=== PATIENT | female | born 1995 | race Two or more races ===

== ENCOUNTER 2023-11-13 11:58 | Observation (INO) | payer MEDICAID ==
[~2023-11-13 11:58] MED LIST: PRENPAK46 OR
[2023-11-13 14:05] LABS: Basophils # (auto) 0 10 ^3/uL (0-0.2); Basophils % (auto) 0.1 % (0.0-2.0); Eosinophils # (auto) 0.1 10 ^3/uL (0-0.8); Eosinophils % (auto) 0.7 % (0.0-7.0); Hematocrit 36.2 % (36.0-46.0); Hemoglobin 12.1 g/dL (12.2-16.2); Lymphocytes # (auto) 2.4 10 ^3/uL (0.4-5.4); Lymphocytes % (auto) 21.1 % (10.0-50.0); Mean Corpuscular Hemoglobin 27.8 pg (28.0-32.0); Mean Corpuscular Hgb Conc. 33.3 g/dL (32.0-36.0); Mean Corpuscular Volume 83.5 fL (80.0-100.0); Monocytes # (auto) 0.6 10 ^3/uL (0-1.3); Monocytes % (auto) 5.1 % (0.0-12.0); Neutrophils # (auto) 8.3 10 ^3/uL (1.6-8.6); Red Blood Cells 4.34 10^6/uL (4.0-5.20); White Blood Cell 11.3 10^3/uL (4.4-10.8)
[2023-11-13 14:21] LABS: INR 0.97 (0.9-1.15); Partial Thromboplastin Time 28.5 SEC (24.5-34.5); Prothrombin Time 10.3 sec (9.3-11.8)
[2023-11-13 14:45] LABS: Urine Bacteria FEW /hpf (None Seen); Urine Blood Negative /uL (Negative); Urine Budding Yeast OCCASIONAL /hpf (None Seen); Urine Clarity Turbid (Clear); Urine Color Yellow (Yellow); Urine Mucus FEW (None Seen); Urine Protein, UAD TRACE (Negative); Urine Specific Gravity 1.018 (1.001-1.035); Urine Urobilinogen Normal (Negative); Urine WBC 10 /hpf (0 - 5); Urine pH 6.5 (5.0-9.0)
[2023-11-13 14:47] LABS: Protein, Urine 16.4 mg/dL (0.0-11.9)
[2023-11-13 14:48] LABS: Alanine Aminotransferase 34 U/L (7-40); Albumin 3.7 g/dL (3.2-4.8); Alkaline Phosphatase 118 U/L (46-116); Anion Gap 8 (5-15); Aspartate Aminotransferase 22 U/L (13-40); Bilirubin, Total 0.4 mg/dL (0.2-1.0); Calcium 9.7 mg/dL (8.7-10.4); Carbon Dioxide 21 mmol/L (20-30); Chloride 108 mmol/L (98-107); Glucose 83 mg/dL (74-106); Potassium 3.6 mmol/L (3.5-5.1); Sodium 137 mmol/L (136-145); Total Protein 6.8 g/dL (5.7-8.2); Uric Acid 4.1 mg/dL (3.1-7.8)
[2023-11-13 14:50] LABS: Creatinine, Urine 131.92 mg/dL (30.0-125.0); Urine Protein/Creatinine Ratio 0.12
[2023-11-13 14:51] LABS: BUN/Creatinine Ratio 9.6 (10.0-20.0); Blood Urea Nitrogen < 5 mg/dL (9-23)
== END 2023-11-13 15:30 | disposition home or self-care (01) ==
LOC: LDRP 11:58 → UNDODISOB 14:43
PROVIDERS: ADMIT Obstetrics & Gynecology; ATTEND Obstetrics & Gynecology
DX: O26.893 Other specified pregnancy related conditions, third trimester (principal); R03.0 Elevated blood-pressure reading, without diagnosis of hypertension; Z3A.28 28 weeks gestation of pregnancy
CPT/HCPCS: 36415; 59025; 80053; 81001; 81002; 82570; 84156; 84550; 85025; 85379; 85610; 85730; G0378

== ENCOUNTER 2023-11-24 20:00 | Observation (INO) | payer MEDICAID | END 2023-11-24 21:34 | disposition home or self-care (01) | LOC: LDRP 20:00 | PROVIDERS: ADMIT Obstetrics & Gynecology; ATTEND Obstetrics & Gynecology | DX: O13.3 Gestational [pregnancy-induced] hypertension without significant proteinuria, third trimester (principal); Z3A.29 29 weeks gestation of pregnancy; Z79.82 Long term (current) use of aspirin | CPT/HCPCS: 59025; 81002; 94760; G0378 ==

== ENCOUNTER 2023-12-01 20:13 | Observation (INO) | payer MEDICAID | END 2023-12-01 21:52 | disposition home or self-care (01) | LOC: LDRP 20:13 | PROVIDERS: ADMIT Obstetrics & Gynecology; ATTEND Obstetrics & Gynecology | DX: O13.3 Gestational [pregnancy-induced] hypertension without significant proteinuria, third trimester (principal); Z3A.31 31 weeks gestation of pregnancy | CPT/HCPCS: 59025; 81002; 94760; G0378 ==

== ENCOUNTER 2023-12-04 20:05 | Observation (INO) | payer MEDICAID ==
[2023-12-04] MEDS ORDERED: LABE300T5 PO (20:56)
[2023-12-04] MEDS ORDERED: ASPI-543 PO (20:56)
[2023-12-23] MEDS ORDERED: LABE300T5 PO ×2 (19:59)
== END 2023-12-04 21:20 | disposition home or self-care (01) ==
LOC: LDRP 20:05 → INTOOBSV 20:05
PROVIDERS: ADMIT Obstetrics & Gynecology; ATTEND Obstetrics & Gynecology
DX: O13.3 Gestational [pregnancy-induced] hypertension without significant proteinuria, third trimester (principal); Z3A.31 31 weeks gestation of pregnancy
CPT/HCPCS: 59025; 81002; 94760; G0378

== ENCOUNTER 2023-12-08 20:07 | Observation (INO) | payer MEDICAID ==
[~2023-12-08 20:07] MED LIST changes: +ASPI-543 PO; +LABE300T5 PO
[2023-12-08 21:36] LABS: Hematocrit 35.2 % (36.0-46.0); Hemoglobin 11.9 g/dL (12.2-16.2); Mean Corpuscular Hemoglobin 27.9 pg (28.0-32.0); Mean Corpuscular Hgb Conc. 33.8 g/dL (32.0-36.0); Mean Corpuscular Volume 82.4 fL (80.0-100.0); Red Blood Cells 4.27 10^6/uL (4.0-5.20); Red Cell Distribution Width 14.1 % (11.8-14.3); White Blood Cell 12.9 10^3/uL (4.4-10.8)
[2023-12-08 21:38] LABS: Basophils % (manual) 0 (0.0-2.0); Blast Cells 0; Metamyelocytes % 0; Myelocytes % 0; Promyelocytes % 0; Reactive Lymphocytes 0
[2023-12-08 21:53] LABS: Alanine Aminotransferase 37 U/L (7-40); Alkaline Phosphatase 129 U/L (46-116); Anion Gap 11 (5-15); Aspartate Aminotransferase 23 U/L (13-40); BUN/Creatinine Ratio 10.2 (10.0-20.0); Blood Urea Nitrogen 6 mg/dL (9-23); Calcium 9.4 mg/dL (8.7-10.4); Carbon Dioxide 20 mmol/L (20-30); Chloride 108 mmol/L (98-107); Glucose 113 mg/dL (74-106); Potassium 3.8 mmol/L (3.5-5.1); Sodium 139 mmol/L (136-145); Uric Acid 4.1 mg/dL (3.1-7.8)
[2023-12-08 21:54] LABS: Albumin 3.6 g/dL (3.2-4.8); Bilirubin, Total 0.4 mg/dL (0.2-1.0); INR 0.98 (0.9-1.15); Partial Thromboplastin Time 27.5 SEC (24.5-34.5); Prothrombin Time 10.4 sec (9.3-11.8); Total Protein 6.6 g/dL (5.7-8.2)
[2023-12-08 22:02] LABS: Band Neutrophils % (manual) 2; Eosinophils % (manual) 1 (0-7); Lymphocytes % (manual) 19 (10.0-50.0); Monocytes % (manual) 6 (0-12); Platelet Estimate Adequate; RBC Morphology Normal
[2023-12-08 22:06] LABS: Urine Bacteria FEW /hpf (None Seen); Urine Blood Negative /uL (Negative); Urine Clarity Clear (Clear); Urine Color Light-Yellow (Yellow); Urine Protein, UAD Negative (Negative); Urine Specific Gravity 1.015 (1.001-1.035); Urine Urobilinogen Normal (Negative); Urine WBC 10 /hpf (0 - 5); Urine pH 5.5 (5.0-9.0)
[2023-12-08 22:17] LABS: Protein, Urine 15.1 mg/dL (0.0-11.9)
[2023-12-08 22:19] LABS: Creatinine, Urine 83.31 mg/dL (30.0-125.0); Urine Protein/Creatinine Ratio 0.18
== END 2023-12-08 22:49 | disposition home or self-care (01) ==
LOC: LDRP 20:07
PROVIDERS: ADMIT Obstetrics & Gynecology; ATTEND Obstetrics & Gynecology
DX: O13.3 Gestational [pregnancy-induced] hypertension without significant proteinuria, third trimester (principal); O99.891 Other specified diseases and conditions complicating pregnancy; M54.50 Low back pain, unspecified; Z3A.31 31 weeks gestation of pregnancy
CPT/HCPCS: 36415; 59025; 76818; 80053; 81001; 82570; 84156; 84550; 85007; 85027; 85610; 85730; 94760; G0378

== ENCOUNTER 2023-12-11 20:06 | Observation (INO) | payer MEDICAID | END 2023-12-11 21:53 | disposition home or self-care (01) | LOC: LDRP 20:06 | PROVIDERS: ADMIT Obstetrics & Gynecology; ATTEND Obstetrics & Gynecology | DX: O13.3 Gestational [pregnancy-induced] hypertension without significant proteinuria, third trimester (principal); Z3A.32 32 weeks gestation of pregnancy | CPT/HCPCS: 59025; 76818; 81002; 94760; G0378 ==

== ENCOUNTER 2023-12-15 20:01 | Observation (INO) | payer MEDICAID ==
[~2023-12-15] VITALS: Ht 167.6 cm; Wt 127.9 kg
[2023-12-15] MEDS: TERBUTALINE SULFATE 1 MG/ML 1ML VIAL SC ONE (21:22)
[2023-12-15] MEDS: BETAMETHASONE ACET (30mg/5ml) 5ml Vial 6mg/ml IM ONE (21:34)
[2023-12-15] MEDS ORDERED: NIF10C PO (21:51)
[2023-12-15] MEDS: NIFEdipine 10 MG CAP ONE (22:21)
[2023-12-15] MEDS: NIFEdipine 10 MG CAP PO ONE (22:21)
[2023-12-15] MEDS: TERBUTALINE SULFATE 1 MG/ML 1ML VIAL SC SCH (22:46)
[2023-12-16] MEDS: LACTATED RINGER'S 1,000 ML IV ONE (01:08)
== END 2023-12-16 00:42 | disposition home or self-care (01) ==
LOC: LDRP 20:01
PROVIDERS: ADMIT Obstetrics & Gynecology; ATTEND Obstetrics & Gynecology
DX: O13.3 Gestational [pregnancy-induced] hypertension without significant proteinuria, third trimester (principal); O60.03 Preterm labor without delivery, third trimester; Z3A.32 32 weeks gestation of pregnancy
CPT/HCPCS: 59025; 76815; 76818; 81002; 94760; 96360; 96361; 96372; G0378; J0702; J3105

== ENCOUNTER 2023-12-16 21:07 | Observation (INO) | payer MEDICAID ==
[~2023-12-16] VITALS: Ht 167.6 cm; Wt 132.0 kg
[~2023-12-16 21:07] MED LIST changes: -LABE300T5 PO; +NIF10C PO
[2023-12-16] MEDS: BETAMETHASONE ACET (30mg/5ml) 5ml Vial 6mg/ml IM ONE (21:44)
== END 2023-12-16 22:10 | disposition home or self-care (01) ==
LOC: LDRP 21:07
PROVIDERS: ADMIT Obstetrics & Gynecology; ATTEND Obstetrics & Gynecology
DX: O60.03 Preterm labor without delivery, third trimester (principal); O13.3 Gestational [pregnancy-induced] hypertension without significant proteinuria, third trimester; Z3A.33 33 weeks gestation of pregnancy
CPT/HCPCS: 81002; 96372; G0378

== ENCOUNTER 2023-12-18 20:02 | Observation (INO) | payer MEDICAID | END 2023-12-18 21:41 | disposition home or self-care (01) | LOC: LDRP 20:02 | PROVIDERS: ADMIT Obstetrics & Gynecology; ATTEND Obstetrics & Gynecology | DX: O13.3 Gestational [pregnancy-induced] hypertension without significant proteinuria, third trimester (principal); Z3A.33 33 weeks gestation of pregnancy | CPT/HCPCS: 59025; 76818; 81002; 94760; G0378 ==

== ENCOUNTER 2023-12-22 20:09 | Observation (INO) | payer MEDICAID ==
[2023-12-23] MEDS ORDERED: LABE300T5 PO (19:59)
== END 2023-12-22 22:48 | disposition home or self-care (01) ==
LOC: LDRP 20:09
PROVIDERS: ADMIT Obstetrics & Gynecology; ATTEND Obstetrics & Gynecology
DX: O13.3 Gestational [pregnancy-induced] hypertension without significant proteinuria, third trimester (principal); O60.03 Preterm labor without delivery, third trimester; O26.893 Other specified pregnancy related conditions, third trimester; R51.9 Headache, unspecified; Z3A.33 33 weeks gestation of pregnancy
CPT/HCPCS: 59025; 76818; 81002; 94760; G0378

== ENCOUNTER 2023-12-23 15:21 | Observation (INO) | payer MEDICAID ==
[~2023-12-23] VITALS: Ht 167.6 cm; Wt 132.0 kg
[2023-12-23 17:04] LABS: Urine Bacteria FEW /hpf (None Seen); Urine Blood Negative /uL (Negative); Urine Clarity Clear (Clear); Urine Color Light-Yellow (Yellow); Urine Protein, UAD Negative (Negative); Urine Specific Gravity 1.005 (1.001-1.035); Urine Urobilinogen Normal (Negative); Urine WBC 6 /hpf (0 - 5); Urine pH 5.5 (5.0-9.0)
[2023-12-23 17:05] LABS: Basophils # (auto) 0 10 ^3/uL (0-0.2); Basophils % (auto) 0.2 % (0.0-2.0); Eosinophils # (auto) 0.1 10 ^3/uL (0-0.8); Eosinophils % (auto) 0.7 % (0.0-7.0); Hemoglobin 12.9 g/dL (12.2-16.2); Lymphocytes # (auto) 3.3 10 ^3/uL (0.4-5.4); Lymphocytes % (auto) 23.6 % (10.0-50.0); Mean Corpuscular Hemoglobin 27.6 pg (28.0-32.0); Mean Corpuscular Volume 81.1 fL (80.0-100.0); Monocytes # (auto) 0.8 10 ^3/uL (0-1.3); Monocytes % (auto) 5.6 % (0.0-12.0); Neutrophils # (auto) 9.7 10 ^3/uL (1.6-8.6); Neutrophils % (auto) 69.9 % (37.0-80.0); Red Blood Cells 4.69 10^6/uL (4.0-5.20); White Blood Cell 13.8 10^3/uL (4.4-10.8)
[2023-12-23 17:14] LABS: Alanine Aminotransferase 21 U/L (7-40); Albumin 3.8 g/dL (3.2-4.8); Alkaline Phosphatase 142 U/L (46-116); Anion Gap 9 (5-15); Aspartate Aminotransferase 10 U/L (13-40); Bilirubin, Total 0.4 mg/dL (0.2-1.0); Calcium 9.5 mg/dL (8.7-10.4); Carbon Dioxide 20 mmol/L (20-30); Chloride 106 mmol/L (98-107); Glucose 81 mg/dL (74-106); Potassium 3.8 mmol/L (3.5-5.1); Sodium 135 mmol/L (136-145); Uric Acid 3.9 mg/dL (3.1-7.8)
[2023-12-23 17:16] LABS: BUN/Creatinine Ratio 10.6 (10.0-20.0); Blood Urea Nitrogen < 5 mg/dL (9-23)
[2023-12-23 17:24] LABS: INR 0.95 (0.9-1.15); Partial Thromboplastin Time 27.9 SEC (24.5-34.5); Prothrombin Time 10.1 sec (9.3-11.8)
[2023-12-23 17:28] LABS: Protein, Urine < 6.0 mg/dL (0.0-11.9)
[2023-12-23 17:31] LABS: Creatinine, Urine 31.66 mg/dL (30.0-125.0); Urine Protein/Creatinine Ratio 0.19
[2023-12-23] MEDS ORDERED: LABE300T5 PO (19:59)
== END 2023-12-23 20:27 | disposition home or self-care (01) ==
LOC: UNDOADMOB 15:21 → LDRP 15:21 → UNDODISOB 20:27
PROVIDERS: ADMIT Obstetrics & Gynecology; ATTEND Obstetrics & Gynecology
DX: O13.3 Gestational [pregnancy-induced] hypertension without significant proteinuria, third trimester (principal); O60.03 Preterm labor without delivery, third trimester; O99.891 Other specified diseases and conditions complicating pregnancy; M54.9 Dorsalgia, unspecified; Z3A.34 34 weeks gestation of pregnancy
CPT/HCPCS: 36415; 59025; 76818; 80053; 81001; 81002; 82570; 84156; 84550; 85025; 85610; 85730; 94760; G0378

== ENCOUNTER 2023-12-25 19:58 | Observation (INO) | payer MEDICAID ==
[~2023-12-25] VITALS: Ht 167.6 cm; Wt 132.0 kg
[~2023-12-25 19:58] MED LIST changes: +LABE300T5 PO; -NIF10C PO
== END 2023-12-25 23:19 | disposition home or self-care (01) ==
LOC: LDRP 19:58
PROVIDERS: ADMIT Obstetrics & Gynecology; ATTEND Obstetrics & Gynecology
DX: O13.3 Gestational [pregnancy-induced] hypertension without significant proteinuria, third trimester (principal); Z3A.34 34 weeks gestation of pregnancy
CPT/HCPCS: 59025; 76818; 81002; 94760; G0378

== ENCOUNTER 2023-12-29 20:04 | Observation (INO) | payer MEDICAID | END 2023-12-29 21:40 | disposition home or self-care (01) | LOC: LDRP 20:04 | PROVIDERS: ADMIT Obstetrics & Gynecology; ATTEND Obstetrics & Gynecology | DX: O13.3 Gestational [pregnancy-induced] hypertension without significant proteinuria, third trimester (principal); Z3A.34 34 weeks gestation of pregnancy | CPT/HCPCS: 59025; 76818; 81002; 94760; G0378 ==

== ENCOUNTER 2024-01-01 20:05 | Observation (INO) | payer MEDICAID ==
[~2024-01-01] VITALS: Ht 167.6 cm; Wt 131.5 kg
== END 2024-01-01 22:29 | disposition home or self-care (01) ==
LOC: LDRP 20:05
PROVIDERS: ADMIT Obstetrics & Gynecology; ATTEND Obstetrics & Gynecology
DX: O13.3 Gestational [pregnancy-induced] hypertension without significant proteinuria, third trimester (principal); Z3A.35 35 weeks gestation of pregnancy
CPT/HCPCS: 59025; 76818; 81002; 94760; G0378

== ENCOUNTER 2024-01-04 20:00 | Observation (INO) | payer MEDICAID ==
[~2024-01-04 20:00] MED LIST changes: +NIF10C PO
== END 2024-01-04 22:23 | disposition home or self-care (01) ==
LOC: LDRP 20:00
PROVIDERS: ADMIT Obstetrics & Gynecology; ATTEND Obstetrics & Gynecology
DX: O13.3 Gestational [pregnancy-induced] hypertension without significant proteinuria, third trimester (principal); Z3A.35 35 weeks gestation of pregnancy
CPT/HCPCS: 76818; G0378; 59025; 81002; 94760

== ENCOUNTER 2024-01-07 20:01 | Observation (INO) | payer MEDICAID ==
[~2024-01-07] VITALS: Ht 165.1 cm; Wt 108.9 kg
[~2024-01-07 20:01] MED LIST changes: -NIF10C PO
== END 2024-01-07 22:09 | disposition home or self-care (01) ==
LOC: LDRP 20:01
PROVIDERS: ADMIT Obstetrics & Gynecology; ATTEND Obstetrics & Gynecology
DX: O13.3 Gestational [pregnancy-induced] hypertension without significant proteinuria, third trimester (principal); Z3A.36 36 weeks gestation of pregnancy
CPT/HCPCS: 59025; 76818; 81002; 94762; G0378

== ENCOUNTER 2024-01-09 11:14 | Observation (INO) | payer MEDICAID ==
[~2024-01-09] VITALS: Ht 167.6 cm; Wt 127.9 kg
[2024-01-09] MEDS: LACTATED RINGER'S 1,000 ML IV ONE (13:06)
== END 2024-01-09 14:15 | disposition home or self-care (01) ==
LOC: LDRP 11:14
PROVIDERS: ADMIT Obstetrics & Gynecology; ATTEND Obstetrics & Gynecology
DX: O13.3 Gestational [pregnancy-induced] hypertension without significant proteinuria, third trimester (principal); Z3A.36 36 weeks gestation of pregnancy
CPT/HCPCS: 59025; 76818; 81002; 94760; 96360; 96361; G0378

== ENCOUNTER 2024-01-11 20:00 | Observation (INO) | payer MEDICAID ==
[~2024-01-11] VITALS: Ht 167.6 cm; Wt 132.0 kg
== END 2024-01-11 22:03 | disposition home or self-care (01) ==
LOC: LDRP 20:00
PROVIDERS: ADMIT Obstetrics & Gynecology; ATTEND Obstetrics & Gynecology
DX: O13.3 Gestational [pregnancy-induced] hypertension without significant proteinuria, third trimester (principal); O99.213 Obesity complicating pregnancy, third trimester; E66.01 Morbid (severe) obesity due to excess calories; Z3A.36 36 weeks gestation of pregnancy
CPT/HCPCS: 59025; 76818; 81002; G0378

== ENCOUNTER 2024-01-14 20:14 | Observation (INO) | payer MEDICAID | END 2024-01-14 22:27 | disposition home or self-care (01) | LOC: LDRP 20:14 | PROVIDERS: ADMIT Obstetrics & Gynecology; ATTEND Obstetrics & Gynecology | DX: O13.3 Gestational [pregnancy-induced] hypertension without significant proteinuria, third trimester (principal); O62.9 Abnormality of forces of labor, unspecified; Z3A.37 37 weeks gestation of pregnancy | CPT/HCPCS: 59025; 76818; 81002; 94760; G0378 ==

== ENCOUNTER 2024-01-18 08:43 | Observation (INO) | payer MEDICAID ==
[~2024-01-18] VITALS: Ht 167.6 cm; Wt 132.0 kg
== END 2024-01-18 21:54 | disposition home or self-care (01) ==
LOC: LDRP 19:58
PROVIDERS: ADMIT Obstetrics & Gynecology; ATTEND Obstetrics & Gynecology
DX: O13.3 Gestational [pregnancy-induced] hypertension without significant proteinuria, third trimester (principal); Z3A.37 37 weeks gestation of pregnancy
CPT/HCPCS: 59025; 76818; 81002; 94760; G0378

== ENCOUNTER 2024-01-21 20:14 | Observation (INO) | payer MEDICAID ==
[2024-01-21 21:22] LABS: Basophils # (auto) 0 10 ^3/uL (0-0.2); Basophils % (auto) 0.1 % (0.0-2.0); Eosinophils # (auto) 0.1 10 ^3/uL (0-0.8); Eosinophils % (auto) 0.9 % (0.0-7.0); Hematocrit 35.4 % (36.0-46.0); Lymphocytes # (auto) 2.9 10 ^3/uL (0.4-5.4); Lymphocytes % (auto) 24.3 % (10.0-50.0); Mean Corpuscular Hemoglobin 27.8 pg (28.0-32.0); Mean Corpuscular Volume 81.7 fL (80.0-100.0); Monocytes # (auto) 0.8 10 ^3/uL (0-1.3); Monocytes % (auto) 6.5 % (0.0-12.0); Neutrophils # (auto) 8.3 10 ^3/uL (1.6-8.6); Neutrophils % (auto) 68.2 % (37.0-80.0); Red Blood Cells 4.34 10^6/uL (4.0-5.20); White Blood Cell 12.1 10^3/uL (4.4-10.8)
[2024-01-21 21:32] LABS: Alanine Aminotransferase 18 U/L (7-40); Albumin 3.5 g/dL (3.2-4.8); Alkaline Phosphatase 159 U/L (46-116); Anion Gap 12 (5-15); Aspartate Aminotransferase 15 U/L (13-40); BUN/Creatinine Ratio 8.8 (10.0-20.0); Bilirubin, Total 0.4 mg/dL (0.2-1.0); Blood Urea Nitrogen 6 mg/dL (9-23); Calcium 9.2 mg/dL (8.7-10.4); Carbon Dioxide 20 mmol/L (20-30); Chloride 106 mmol/L (98-107); Glucose 103 mg/dL (74-106); Potassium 3.8 mmol/L (3.5-5.1); Sodium 138 mmol/L (136-145); Total Protein 6.5 g/dL (5.7-8.2); Uric Acid 4.6 mg/dL (3.1-7.8)
[2024-01-21 21:37] LABS: INR 0.96 (0.9-1.15); Partial Thromboplastin Time 27.9 SEC (24.5-34.5); Prothrombin Time 10.2 sec (9.3-11.8)
[2024-01-21 21:57] LABS: Urine Amorphous Crystal FEW /hpf (None Seen); Urine Bacteria FEW /hpf (None Seen); Urine Blood Negative /uL (Negative); Urine Clarity Ex.Turbid (Clear); Urine Color Orange (Yellow); Urine Mucus MODERATE (None Seen); Urine Protein, UAD 1+ (Negative); Urine Specific Gravity 1.038 (1.001-1.035); Urine Urobilinogen 2 mg/dL (Negative); Urine WBC 61 /hpf (0 - 5); Urine pH 5.5 (5.0-9.0)
[2024-01-21 22:12] LABS: Protein, Urine 60.3 mg/dL (0.0-11.9)
[2024-01-21 22:23] LABS: Creatinine, Urine 359.29 mg/dL (30.0-125.0); Urine Protein/Creatinine Ratio 0.17
== END 2024-01-21 22:12 | disposition home or self-care (01) ==
LOC: LDRP 20:14
PROVIDERS: ADMIT Obstetrics & Gynecology; ATTEND Obstetrics & Gynecology
DX: O13.3 Gestational [pregnancy-induced] hypertension without significant proteinuria, third trimester (principal); Z3A.38 38 weeks gestation of pregnancy
CPT/HCPCS: 36415; 59025; 76818; 80053; 81001; 81002; 82570; 84156; 84550; 85025; 85610; 85730; 94760; G0378

== ENCOUNTER 2024-01-24 05:09 | Inpatient (IN) | payer MEDICAID ==
[~2024-01-24] VITALS: Ht 167.6 cm; Wt 132.4 kg
[2024-01-24] MEDS ORDERED: LIDOCAINE 2%HCL (LOCAL ANESTH.) INJ 20ML MDV IJ PRN (19:30)
[2024-01-24] MEDS ORDERED: NALBUPHINE HCL 10 MG/1ml INJECTION IV PRN (19:30)
[2024-01-24] MEDS ORDERED: DERMOPLAST 60ML BOTTLE TOP PRN (19:30)
[2024-01-24] MEDS ORDERED: WITCH HAZEL-GLYCERIN PAD TOP PRN (19:30)
[2024-01-24] MEDS ORDERED: PHISODERM TOP SOLN 240ML BTL TOP PRN (19:30)
[2024-01-24] MEDS ORDERED: PENICILLIN G POT 5MIL/D5 50ML 50 ML IV ONE (19:30)
[2024-01-24] MEDS: LACTATED RINGER'S 1,000 ML IV SCH (19:50)
[2024-01-24] MEDS ORDERED: TERBUTALINE SULFATE 1 MG/ML 1ML VIAL SC PRN (20:15)
[2024-01-24 20:16] LABS: Basophils # (auto) 0 10 ^3/uL (0-0.2); Basophils % (auto) 0.2 % (0.0-2.0); Eosinophils # (auto) 0.1 10 ^3/uL (0-0.8); Eosinophils % (auto) 0.9 % (0.0-7.0); Hematocrit 36.7 % (36.0-46.0); Hemoglobin 12.4 g/dL (12.2-16.2); Lymphocytes # (auto) 2.8 10 ^3/uL (0.4-5.4); Mean Corpuscular Hemoglobin 27.8 pg (28.0-32.0); Mean Corpuscular Hgb Conc. 33.8 g/dL (32.0-36.0); Mean Corpuscular Volume 82.3 fL (80.0-100.0); Monocytes # (auto) 0.6 10 ^3/uL (0-1.3); Monocytes % (auto) 5.4 % (0.0-12.0); Neutrophils % (auto) 69.5 % (37.0-80.0); Nucleated Red Blood Cells % 0.1 %; Red Blood Cells 4.45 10^6/uL (4.0-5.20); Red Cell Distribution Width 14.9 % (11.8-14.3); White Blood Cell 11.5 10^3/uL (4.4-10.8)
[2024-01-24 20:19] LABS: Urine Bacteria FEW /hpf (None Seen); Urine Blood Negative /uL (Negative); Urine Clarity Turbid (Clear); Urine Color Light-Yellow (Yellow); Urine Protein, UAD Negative (Negative); Urine Specific Gravity 1.007 (1.001-1.035); Urine Urobilinogen Normal (Negative); Urine WBC 40 /hpf (0 - 5); Urine pH 5.5 (5.0-9.0)
[2024-01-24 20:28] LABS: INR 0.95 (0.9-1.15); Partial Thromboplastin Time 27.7 SEC (24.5-34.5); Prothrombin Time 10.1 sec (9.3-11.8)
[2024-01-24 20:30] LABS: Amphetamine Screen, Urine Neg (NEGATIVE); Benzodiazephine Screen, Urine Neg (NEGATIVE)
[2024-01-24 20:31] LABS: Barbiturate Scree,Urine Neg (NEGATIVE); Cocaine Screen, Urine Neg (NEGATIVE); Creatinine, Urine 50.29 mg/dL (30.0-125.0)
[2024-01-24 20:35] LABS: Alanine Aminotransferase 17 U/L (7-40); Albumin 3.6 g/dL (3.2-4.8); Alkaline Phosphatase 164 U/L (46-116); Anion Gap 11 (5-15); Aspartate Aminotransferase 14 U/L (13-40); BUN/Creatinine Ratio 8.3 (10.0-20.0); Bilirubin, Total 0.5 mg/dL (0.2-1.0); Blood Urea Nitrogen 5 mg/dL (9-23); Calcium 9.4 mg/dL (8.7-10.4); Carbon Dioxide 19 mmol/L (20-30); Chloride 107 mmol/L (98-107); Glucose 83 mg/dL (74-106); Potassium 3.8 mmol/L (3.5-5.1); Sodium 137 mmol/L (136-145); Total Protein 6.6 g/dL (5.7-8.2); Uric Acid 4.6 mg/dL (3.1-7.8)
[2024-01-24 20:50] LABS: Protein, Urine 6.8 mg/dL (0.0-11.9); Urine Protein/Creatinine Ratio 0.14
[2024-01-24 20:52] LABS: Cannabinoid Screen, Urine Neg (NEGATIVE); Opiate Scree,Urine Neg (NEGATIVE); Phencyclidine Screen, Urine Neg (NEGATIVE)
[2024-01-24] MEDS: LABETALOL HCL 200 MG TAB PO SCH (21:09)
[2024-01-24] MEDS: miSOPROStol 50 MCG per PRE-CUT 1/2 TAB PO PRN (21:09)
[2024-01-24] MEDS ORDERED: PENICILLIN G POTASSIUM 2,500,000 UNITS in D5W 5% 50 ML IV SCH (23:30)
[2024-01-25] MEDS ORDERED: LACT. RINGERS/OXYTOCIN 20UNITS 500 ML IV ONE ×2 (08:00)
[2024-01-25] MEDS ORDERED: TERBUTALINE SULFATE 1 MG/ML 1ML VIAL SC PRN (08:00)
[2024-01-25] MEDS: LACT. RINGERS/OXYTOCIN 20UNITS 1,000 ML IV SCH (08:30)
[2024-01-25] MEDS: ceFAZolin 2 GM/D5W50ml 50 ML IV ONE (20:15)
[2024-01-26] VITALS (23 sets, daily range): BP systolic 111–146; BP diastolic 54–73; PULSE 68–92; RESP 16–18; TEMP 97.6–98.5; O2SAT 94–99
[2024-01-26] MEDS ORDERED: oxyTOCIN 10 UNIT/ML 10ML VIAL ONE (02:43)
[2024-01-26] MEDS ORDERED: MORPHINE SULF PF 5 MG/10 ML VIAL ONE (02:43)
[2024-01-26] MEDS: ceFAZolin 1GM/50ML 50 ML IV ONE (03:30)
[2024-01-26] MEDS ORDERED: ePHEDrine SULFATE 50 MG/ML AMP ONE (03:38)
[2024-01-26] MEDS ORDERED: diphenhdrAMINE HCL 50 MG/1 ML VL IV PRN (04:45)
[2024-01-26] MEDS ORDERED: MEPERIDINE HCL (25 MG/ML) 1ML VIAL IV PRN (04:45)
[2024-01-26] MEDS ORDERED: NALOXONE HCL 0.4 MG/ML VIAL IV PRN (04:45)
[2024-01-26] MEDS: NALBUPHINE HCL 10 MG/1ml INJECTION SUBCUT ONE (04:45)
[2024-01-26] MEDS ORDERED: DexAMETHasone SOD PHOS 10MG/1ML VIAL INJ IV PRN (04:45)
[2024-01-26] MEDS ORDERED: ONDANSETRON HCL 4 MG/2 ML VIAL IV ONE (04:45)
[2024-01-26] MEDS ORDERED: HYDROmorphone HCL 2 MG/ML VL/or syr IV PRN ×2 (04:45)
[2024-01-26] MEDS: ONDANSETRON HCL 4 MG/2 ML VIAL IV PRN (05:00)
[2024-01-26] MEDS: ACETAMINOPHEN IV 1000 MG/100ML (10MG/ML) IV PRN (08:40)
[2024-01-26] MEDS ORDERED: LABETALOL HCL 200 MG TAB PO PRN (10:00)
[2024-01-26] MEDS: ceFAZolin 1GM/50ML 50 ML IV SCH (11:29)
[2024-01-26] MEDS: KETOROLAC TROMETH 30 MG/ML 1ML VIAL IV PRN (15:54)
[2024-01-26 19:12] LABS: Basophils # (auto) 0 10 ^3/uL (0-0.2); Basophils % (auto) 0.2 % (0.0-2.0); Eosinophils # (auto) 0 10 ^3/uL (0-0.8); Eosinophils % (auto) 0.1 % (0.0-7.0); Hematocrit 33.7 % (36.0-46.0); Hemoglobin 11.3 g/dL (12.2-16.2); Lymphocytes # (auto) 1.2 10 ^3/uL (0.4-5.4); Lymphocytes % (auto) 8.4 % (10.0-50.0); Mean Corpuscular Hemoglobin 27.7 pg (28.0-32.0); Mean Corpuscular Hgb Conc. 33.5 g/dL (32.0-36.0); Mean Corpuscular Volume 82.8 fL (80.0-100.0); Monocytes # (auto) 0.7 10 ^3/uL (0-1.3); Neutrophils # (auto) 12.6 10 ^3/uL (1.6-8.6); Neutrophils % (auto) 86.3 % (37.0-80.0); Red Blood Cells 4.07 10^6/uL (4.0-5.20); Red Cell Distribution Width 14.9 % (11.8-14.3); White Blood Cell 14.6 10^3/uL (4.4-10.8)
[2024-01-27] VITALS (10 sets, daily range): BP systolic 116–141; BP diastolic 62–89; PULSE 72–100; RESP 14–20; TEMP 97.8–101; O2SAT 95–99
[2024-01-27] MEDS ORDERED: ACETAMINOPHEN IV 1000 MG/100ML (10MG/ML) IV PRN (04:45)
[2024-01-27 05:35] LABS: Basophils # (auto) 0 10 ^3/uL (0-0.2); Basophils % (auto) 0.1 % (0.0-2.0); Eosinophils # (auto) 0 10 ^3/uL (0-0.8); Eosinophils % (auto) 0.1 % (0.0-7.0); Hematocrit 32.1 % (36.0-46.0); Hemoglobin 11.1 g/dL (12.2-16.2); Lymphocytes # (auto) 1.2 10 ^3/uL (0.4-5.4); Lymphocytes % (auto) 11.9 % (10.0-50.0); Mean Corpuscular Hemoglobin 28.6 pg (28.0-32.0); Mean Corpuscular Hgb Conc. 34.5 g/dL (32.0-36.0); Monocytes # (auto) 0.5 10 ^3/uL (0-1.3); Monocytes % (auto) 4.5 % (0.0-12.0); Neutrophils # (auto) 8.6 10 ^3/uL (1.6-8.6); Neutrophils % (auto) 83.4 % (37.0-80.0); Red Blood Cells 3.87 10^6/uL (4.0-5.20); Red Cell Distribution Width 15.1 % (11.8-14.3); White Blood Cell 10.3 10^3/uL (4.4-10.8)
[2024-01-27 05:49] LABS: Alanine Aminotransferase 13 U/L (7-40); Albumin 2.9 g/dL (3.2-4.8); Alkaline Phosphatase 125 U/L (46-116); Anion Gap 9 (5-15); Aspartate Aminotransferase 21 U/L (13-40); Bilirubin, Total 0.6 mg/dL (0.2-1.0); Calcium 8.5 mg/dL (8.7-10.4); Carbon Dioxide 22 mmol/L (20-30); Chloride 106 mmol/L (98-107); Glucose 90 mg/dL (74-106); Potassium 3.5 mmol/L (3.5-5.1); Sodium 137 mmol/L (136-145)
[2024-01-27 05:50] LABS: Total Protein 5.5 g/dL (5.7-8.2)
[2024-01-27 05:51] LABS: BUN/Creatinine Ratio 7.8 (10.0-20.0); Blood Urea Nitrogen < 5 mg/dL (9-23)
[2024-01-27] MEDS ORDERED: GENTAMICIN PER PHARMACY 0 ML IV SCH (06:00)
[2024-01-27] MEDS: AMPICILLIN SOD 2GM INJ 2 GM in SODIUM CHL 0.9% 100 ML IV SCH (06:00)
[2024-01-27] MEDS: DOCUSATE CALCIUM 240 MG CAP PO SCH (08:00)
[2024-01-27] MEDS: HYDROcodone-ACET 5/325MG TAB PO PRN (08:00)
[2024-01-27] MEDS: DOCUSATE SOD 100 MG CAP PO SCH (08:00)
[2024-01-27] MEDS: SODIUM CHL 0.9% IV ONE (08:03)
[2024-01-27] MEDS: GENTAMICIN SULFATE IV ONE (08:03)
[2024-01-27] MEDS: IBUPROFEN 800 MG TAB PO PRN (11:13)
[2024-01-27] MEDS: SIMETHICONE 80 MG CHEWABLE TABLET PO SCH (11:34)
[2024-01-27] MEDS ORDERED: HYDR-4902 PO (23:53)
[2024-01-27] MEDS ORDERED: IBUP-1455 PO (23:53)
[2024-01-27] MEDS ORDERED: DOCU-265 PO (23:53)
[2024-01-28] MEDS: HYDROcodone-ACET 5/325MG TAB PO PRN (02:21)
[2024-01-28 03:00] VITALS: BP 140/71; PULSE 76; RESP 14; TEMP 98.6; O2SAT 96
[2024-01-28 06:40] VITALS: BP 126/60; PULSE 81; TEMP 98.6; O2SAT 96
[2024-01-28] MEDS ORDERED: GENTAMICIN SULFATE IV SCH (08:00)
[2024-01-28] MEDS ORDERED: D5W 5% IV SCH (08:00)
[2024-01-28] MEDS: CEPHALEXIN 250 MG CAP PO SCH (13:30)
[2024-01-28 19:00] VITALS: BP 135/75; PULSE 83; RESP 16; TEMP 99.4; O2SAT 97
[2024-01-28 23:00] VITALS: BP 129/69; PULSE 86; RESP 16; TEMP 99; O2SAT 97
[2024-01-29 03:00] VITALS: BP 130/70; PULSE 85; RESP 16; TEMP 97.6; O2SAT 96
[2024-01-29 07:00] VITALS: BP 142/71; PULSE 97; RESP 16; TEMP 97.6; O2SAT 98
[2024-01-29 11:00] VITALS: BP 142/69; PULSE 89; RESP 20; TEMP 97.8; O2SAT 97
== END 2024-01-29 14:40 | disposition home or self-care (01) | DRG 540 ==
LOC: LDRP 19:12
PROVIDERS: ADMIT Obstetrics & Gynecology; ATTEND Obstetrics & Gynecology
PROC: 0UB00ZZ Excision of Right Ovary, Open Approach (ICD-10-PCS; 2024-01-26)
PROC: 10D00Z1 Extraction of Products of Conception, Low, Open Approach (ICD-10-PCS; principal; 2024-01-26 03:11)
DX: O13.4 Gestational [pregnancy-induced] hypertension without significant proteinuria, complicating childbirth (principal); D62 Acute posthemorrhagic anemia; O61.9 Failed induction of labor, unspecified; O86.4 Pyrexia of unknown origin following delivery; O99.214 Obesity complicating childbirth; E66.01 Morbid (severe) obesity due to excess calories; N83.201 Unspecified ovarian cyst, right side; O90.81 Anemia of the puerperium; O34.03 Maternal care for unspecified congenital malformation of uterus, third trimester; O63.0 Prolonged first stage (of labor); Z3A.38 38 weeks gestation of pregnancy; Z37.0 Single live birth; Z90.49 Acquired absence of other specified parts of digestive tract; Q51.3 Bicornate uterus
CPT/HCPCS: 36415; 59025; 59200; 80053; 80170; 80307; 81001; 82570; 83605; 84156; 84550; 85025; 85610; 85730; 86592; 86803; 86850; 86900; 86901; 94760; 94762; 96360; 96361; 96365; 96366; 96374; 96375; G0378; J0131; J1885; J2405; J2590; J7060

== ENCOUNTER 2024-05-17 16:28 | Emergency (ER) | payer MEDICAID ==
[~2024-05-17] VITALS: Ht 167.6 cm; Wt 130.0 kg
[~2024-05-17 16:28] MED LIST changes: -ASPI-543 PO; +DOCU-265 PO; +HYDR-4902 PO; +IBUP-1455 PO
[2024-05-17] MEDS: MORPHINE SULFATE 4 MG/ML SYR/VIAL IV ONE (16:48)
[2024-05-17] MEDS: ONDANSETRON HCL 4 MG/2 ML VIAL IV ONE (16:48)
[2024-05-17 17:26] VITALS: BP 141/72; PULSE 90; RESP 15; TEMP 97.9; O2SAT 99
--- NOTE | 2024-05-17 17:29 | ED.PDOC ---
GI ASSESSMENT HPI Comments 28-year-old female complaining of umbilical abdominal pain. Patient reports a history of umbilical hernia. Has been seen by PCP and has a appointment with general surgeon next week. States she was at the store today when the hernia popped out. Causing 10/10 pain. She was not able to reduce the hernia. States normally it does pop back in on its own. No vomiting no nausea. Chief Complaint: Abdominal Pain Time Seen by MD: 16:33 Reviewed Notes: Nurses Notes Allergies: Coded Allergies: NO KNOWN ALLERGIES (Unverified , 01/18/24) Home Meds Active Scripts Hydrocodone-Acetaminophen (Hydrocodone Bitartrate/AC 5-325 mg) 1 Tab Tab, 1 TAB PO Q4HPRN PRN for 4 Days, #20 TAB Prov:SABABROCKMICHAELAUSTIN [facility] 01/27/24 Ibuprofen Micronized (Ibuprofen) 800 Mg Tab, 800 MG PO Q8HP PRN for 20 Days, #60 TAB Prov:MATT MCGOWAN [facility] 01/27/24 Docusate Sodium (Docusate Sodium) 100 Mg Cap, 100 MG PO Q12HR PRN for 30 Days, #60 CAP 2 Refills Prov:JULIENNEJAYDENELIZABETHMICHAELAUSTIN [facility] 01/27/24 Labetalol Hcl (Labetalol Hcl) 300 Mg Tab, 1 TAB PO BID, #180 TAB 1 Refill Prov:MICHAEL MCGOWANMITZIJIMBO [facility] 12/23/23 Reported Medications W/O Vit A W/ Fe Carbo (PNV OB+DHA) Faraz, 1 TAB OR DAILY 10/12/12 Information Source: Patient Mode of Arrival: EMS Constitutional: denies: chills, diaphoresis, fatigue, fever, malaise, sweats, weakness, others EENTM: denies: blurred vision, double vision, ear bleeding, ear discharge, ear drainage, ear pain, ear ringing, eye pain, eye redness, hearing loss, mouth pain, mouth swelling, nasal discharge, nose bleeding, nose congestion, nose pain, photophobia, tearing, throat pain, throat swelling, voice changes, others Respiratory: denies: cough, hemoptysis, orthopnea, SOB at rest, shortness of breath, SOB with excertion, stridor, wheezing, others Cardiovascular: denies: chest pain, dizzy spells, diaphoresis, Dyspnea on exertion, edema, irregular heart beat, left arm pain, lightheadedness, palpitations, PND, syncope, others Gastrointestinal: reports: abdominal pain; denies: abdomen distended, blood streaked bowels, constipated, diarrhea, dysphagia, difficulty swallowing, hematemesis, melena, nausea, poor appetite, poor fluid intake, rectal bleeding, rectal pain, vomiting, others Genitourinary: denies: abnormal vagina bleeding, burning, dyspareunia, dysuria, flank pain, frequency, hematuria, incontinence, pain, , vagina discharge, urgency, others Neurological: denies: dizziness, fainting, headache, left sided numbness, left sided weakness, numbness, paresthesia, pre-existing deficit, right sided numbness, right sided weakness, seizure, speech problems, tingling, tremors, weakness, others Musculoskeletal: denies: back pain, gout, joint pain, joint swelling, muscle pain, muscle stiffness, neck pain, others Integumetry: denies: bruises, change in color, change in hair/nails, dryness, laceration, lesions, lumps, rash, wounds, others Allergic/Immunocompromised: denies: Difficulty Healing, Frequent Infections, Hives, Itching, others Physical Exam General Appearance: No Apparent Distress, Normal HEENT: Normal ENT Inspection, Pharynx Normal, TMs Normal Neck: Full Range of Motion, Non-Tender, Normal, Normal Inspection Respiratory: Chest Non-Tender, Lungs Clear, No Accessory Muscle Use, No Respiratory Distress, Normal Breath Sounds Cardiovascular: No Edema, No JVD, No Murmur, No Gallop, Normal Peripheral Pulses, Regular Rate/Rhythm Breast Exam: Deferred Gastrointestinal: Hernia (Umbilical hernia palpated), No Organomegaly, No Pulsatile Mass, Soft Genitalia: Deferred Pelvic: Deferred Rectal: Deferred Extremities: No calf tenderness, Normal capillary refill, Normal inspection, Normal range of motion, Non-tender, No pedal edema Musculoskeletal : Apperance: Normal Neurologic: Alert, golf club weighter II-XII nml as Tested, No Motor Deficits, Normal Affect, Normal Mood, No Sensory Deficits Cerebellar Function: Normal Reflexes: Normal Skin: Dry, Normal Color, Warm Lymphatic: No Adenopathy Was a procedure done? Was a procedure done?: No GI differential Dx Differential Diagnosis: Gastritis/PUD, Gastroenteritis, GI hemorrhage, Hernia, Ischemic Bowel X-Ray, Labs, Meds, VS Vital Signs Date Time Temp Pulse Resp B/P (MAP) Pulse Ox O2 Delivery O2 Flow Rate FiO2 05/17/24 16:48 90 18 141/90 05/17/24 16:38 98.2 90 18 141/90 (107) 100 Current Medications Medications (Trade) Dose Ordered Sig/Christina Route Start Time Stop Time Status Last Admin Ondansetron HCl (Zofran) 4 mg ONCE ONCE IV 05/17/24 16:45 05/17/24 16:46 DC 05/17/24 16:48 Morphine Sulfate 4 mg ONCE ONCE IV 05/17/24 16:45 05/17/24 16:46 DC 05/17/24 16:48 X-Ray, Labs, Meds, VS Comment Umbilical hernia successfully reduced using ice pack and Trendelenburg. Time of 1ST Reevaluation: 17:28 Reevaluation 1ST: Improved Patient Education/Counseling: Diagnosis, Treatment, Need For Follow Up (Follow up with general surgeon next available appointment) Family Education/Counseling: Diagnosis, Treatment Departure 1 Departure Time of Disposition: 17:28 Impression: Primary Impression: Umbilical hernia Qualified Codes: K42.9 - Umbilical hernia without obstruction or gangrene Disposition: 01 HOME / SELF CARE / HOMELESS Condition: Fair Discharged With: Self Critical Care Note Critical Care Time?: No Stability Stability form required: No Heart Score Heart Score: Heart Score Response (Comments) Value History N/A 0 EKG N/A 0 Age N/A 0 Risk Factors N/A 0 Troponin N/A 0 Total 0 BIBIANA NASH May 17, 2024 17:29
== END 2024-05-17 17:40 | disposition home or self-care (01) ==
LOC: ER 16:28 → EDUNIT# 16:28 → EDBD 16:28 → ER 17:40
DX: K42.9 Umbilical hernia without obstruction or gangrene (principal); Z79.899 Other long term (current) drug therapy
CPT/HCPCS: 96374; 96375; 99284; J2270; J2405

== ENCOUNTER 2025-04-19 16:16 | Observation (INO) | payer MEDICAID ==
--- NOTE | 2025-04-19 17:34 | DVH ---
EXAM: US BIOPHYSICAL PROFILE HISTORY: PIH COMPARISON: US BIOPHYSICAL PROFILE on DOS: 01/21/24 TECHNIQUE: Transabdominal and endovaginal real time feng scale, color, and doppler evaluation. Perman ent images are maintained in the patient record. FINDINGS: Normal biophysical profile score 8/8. heart tone 139 beats per minute. Fundal placenta locati on amniotic fluid index 11.9 cm. Cephalic presentation. Overall difficult examination. Technolo gist indicates by coronary uterus however no definitive suggestion on the provided images. IMPRESSION: 1. Single viable gestation with normal cardiac heart rate. normal biophysical profile score.
[2025-04-19 17:59] LABS: Hematocrit 36.1 % (36.0-46.0); Hemoglobin 12.2 g/dL (12.2-16.2); Mean Corpuscular Hemoglobin 26.9 pg (28.0-32.0); Mean Corpuscular Volume 79.5 fL (80.0-100.0); Nucleated Red Blood Cells % 0.1 %
[2025-04-19 18:12] LABS: Alanine Aminotransferase 26 U/L (7-40); Albumin 3.6 g/dL (3.2-4.8); Anion Gap 10 (5-15); BUN/Creatinine Ratio 12.5 (10.0-20.0); Glucose 82 mg/dL (74-106); Potassium 3.9 mmol/L (3.5-5.1); Sodium 138 mmol/L (136-145); Total Protein 6.7 g/dL (5.7-8.2); Uric Acid 3.6 mg/dL (3.1-7.8)
[2025-04-19 18:13] LABS: Bilirubin, Total 0.4 mg/dL (0.2-1.0)
[2025-04-19 18:24] LABS: Alkaline Phosphatase 194 U/L (46-116); Blood Urea Nitrogen 5 mg/dL (9-23); Calcium 8.7 mg/dL (8.7-10.4); Carbon Dioxide 20 mmol/L (20-31); Chloride 108 mmol/L (98-107)
[2025-04-19 18:24] LABS: Protein, Urine 30.4 mg/dL (1-14)
[2025-04-19 18:30] LABS: INR 0.93 (0.9-1.15); Partial Thromboplastin Time 28.1 SEC (24.5-34.5); Prothrombin Time 9.9 sec (9.3-11.8)
[2025-04-19 18:38] LABS: Urine Protein, UAD TRACE (Negative)
--- NOTE | 2025-04-19 18:56 | DVHDS2 ---
Physician Discharge Progress N Final Diagnosis: ruled out preeclampsia Operations or Procedures: Operations or Procedures 29yo IUP@37.1wks was sent down from Dr. Solis's office for rule out preeclampsia/NST/BPP. Denies UCs/LOF/VB/THOMASON/vision changes/RUQ pain. Endorses +FM. VSS, normotensive per RN (see CPN) NST reactive per RN BPP 02/03 FKC/labor/preE precautions reviewed f/u in 1wk with [address] Solis consulted, agrees with POC. Laboratory Tests Test 04/19/25 16:40 04/19/25 17:22 Range/Units Urine Color Yellow Yellow Urine Clarity Turbid H Clear Urine pH 6.0 5.0-9.0 Urine Specific [place] 1.022 1.001-1.035 Urine Protein Trace H Negative Urine Ketones Trace Negative Urine Blood Negative Negative /uL Urine Nitrite Negative Negative Urine Bilirubin Negative Negative Urine Urobilinogen Normal Negative mg/dL Urine Leukocyte Esterase 3+ Negative /uL Urine RBC 5 0 - 4 /hpf Urine Microscopic WBC 81 H 0-5 /HPF Urine Squamous Epithelial Cells Mod <5 /hpf Urine Bacteria Few H None Seen /hpf Urine Mucus Few None Seen Urine Creatinine 119.00 30.0-125.0 mg/dL Urine Protein/Creatinine Ratio 0.26 Urine Glucose Normal Normal mg/dL Urine Total Protein 30.4 H 1-14 mg/dL White Blood Count 12.6 H 4.4-10.8 10^3/uL Red Blood Count 4.54 4.0-5.20 10^6/uL Hemoglobin 12.2 12.2-16.2 g/dL Hematocrit 36.1 36.0-46.0 % Mean Corpuscular Volume 79.5 L 80.0-100.0 fL Mean Corpuscular Hemoglobin 26.9 L 28.0-32.0 pg Mean Corpuscular Hemoglobin Concent 33.8 32.0-36.0 g/dL Red Cell Distribution Width 14.3 11.8-14.3 % Platelet Count 202 140-450 10^3/uL Mean Platelet Volume 10.6 6.9-10.8 fL Neutrophils (%) (Auto) 71.2 37.0-80.0 % Lymphocytes (%) (Auto) 22.6 10.0-50.0 % Monocytes (%) (Auto) 5.5 0.0-12.0 % Eosinophils (%) (Auto) 0.5 0.0-7.0 % Basophils (%) (Auto) 0.2 0.0-2.0 % Neutrophils # (Auto) 9.0 H 1.6-8.6 10 ^3/uL Lymphocytes # (Auto) 2.9 0.4-5.4 10 ^3/uL Monocytes # (Auto) 0.7 0-1.3 10 ^3/uL Eosinophils # (Auto) 0.1 0-0.8 10 ^3/uL Basophils # (Auto) 0 0-0.2 10 ^3/uL Nucleated Red Blood Cells 0.1 % Prothrombin Time 9.9 9.3-11.8 sec Prothrombin Time INR 0.93 0.9-1.15 Activated Partial Thromboplast Time 28.1 24.5-34.5 SEC Sodium Level 138 136-145 mmol/L Potassium Level 3.9 3.5-5.1 mmol/L Chloride Level 108 H 98-107 mmol/L Carbon Dioxide Level 20 20-31 mmol/L Anion Gap 10 5-15 Blood Urea Nitrogen 5 L 9-23 mg/dL Creatinine 0.40 L 0.550-1.02 mg/dL Glomerular Filtration Rate Calc 136 >90 mL/min BUN/Creatinine Ratio 12.5 10.0-20.0 Serum Glucose 82 74-106 mg/dL Uric Acid 3.6 3.1-7.8 mg/dL Calcium Level 8.7 8.7-10.4 mg/dL Total Bilirubin 0.4 0.2-1.0 mg/dL Aspartate Amino Transferase (AST) 20 13-40 U/L Alanine Aminotransferase (ALT) 26 7-40 U/L Alkaline Phosphatase 194 H 46-116 U/L Total Protein 6.7 5.7-8.2 g/dL Albumin 3.6 3.2-4.8 g/dL Other Interventions Other Interventions [address] [address] Ph: [phone] DIAGNOSTIC IMAGING Diagnostic Imaging Report : [id number] Signed PATIENT: RASHEL NAVARRO ACCT: [id number] UNIT: [id number] : 1995 LOC: LD ROOM / BED: TRIAGE1 / A AGE / SEX: 29 / F ADM STATUS: ADM IN SERVICE 1643 ORDERING PHYSICIAN: YINA SOLIS DO PROCEDURE(s): BPP - BIOPHYSICAL PROFILE REASON: PIH ORDER NUMBER(s): [id number], ACCESSION NUMBER(s): [id number] EXAM: US BIOPHYSICAL PROFILE HISTORY: [facility] COMPARISON: US BIOPHYSICAL PROFILE on DOS: 01/21/24 TECHNIQUE: Transabdominal and endovaginal real time feng scale, color, and doppler evaluation. Permanent images are maintained in the patient record. FINDINGS: Normal biophysical profile score 8/8. heart tone 139 beats per minute. Fundal placenta location amniotic fluid index 11.9 cm. Cephalic presentation. Overall difficult examination. Technologist indicates by coronary uterus however no definitive suggestion on the provided images. IMPRESSION: 1. Single viable gestation with normal cardiac heart rate. normal biophysical profile score. ATED BY: RELL DUKE MD DICTATED DATE/TIME: 04/19/251731 SIGNED BY: RELL DUKE MD SIGNED DATE/TIME: 04/19/251731 CC: Condition on Discharge: Stable Disposition: Home Discharge Instructions: Diet: Regular Activity: No Restrictions, As Tolerated Medications: see med list Follow Up Care: Specialist: f/u in 1 wk Discharge Statement: "Patient was advised to return to the ER or call 911 if any headaches, dizziness, shortness of breath, chest pain, abdominal pain, bleeding, fevers, or worsening of medical condition. Patient was counseled about treatment plan, medications, possible side effects, patientverbalized understanding. All questions were answered to the best of my ability. This discharge took greater then 30 minutes in planning, reviewing documen tation, counseling the patient, and discussing with other team members." Visit Coding OBGYN Date of Service: Apr 19, 2025 Billing Provider: MATT MCGOWAN CNM MENTAL HEALTH PROGRAM DIRECTOR Common Visit Codes: 35390-FIMSZPQ OBS CARE (HIGH) MENTAL HEALTH PROGRAM DIRECTOR Procedure Codes: 95624-12- NON-STRESS TEST MATT MCGOWAN CNM Apr 19, 2025 18:56
== END 2025-04-19 19:24 | disposition home or self-care (01) ==
LOC: LDRP 16:16
PROVIDERS: ADMIT Obstetrics & Gynecology; ATTEND Obstetrics & Gynecology
DX: O13.3 Gestational [pregnancy-induced] hypertension without significant proteinuria, third trimester (principal); Z3A.37 37 weeks gestation of pregnancy; Z98.890 Other specified postprocedural states
CPT/HCPCS: 36415; 59025; 76819; 80053; 81001; 81002; 82570; 84156; 84550; 85025; 85610; 85730; 94760; G0378

== ENCOUNTER 2025-04-26 06:55 | Observation (INO) | payer MEDICAID ==
--- NOTE | 2025-04-26 12:06 | DVH ---
BIOPHYSICAL PROFILE HISTORY: PIH TECHNIQUE: Multiple transabdominal real-time grayscale sonographic images through the gravid uterus of the fetus with duplex Doppler color flow and M-mode spectral analysis FINDINGS: BIOPHYSICAL PROFILE: breathing score: 2 movement score: 2 tone score: 2 Quantitative KAR score: 2 (KAR: 6.8 Cm.) (interval decrease in amniotic fluid, previously measuring 11.9 cm). Total score: 8 The cervix not well visualized Single live fetus in cephalic presentation. heart rate 141 beats per minute. 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 IMPRESSION: Biophysical profile score: 8/8 interval decrease in amniotic fluid now measuring 6.8 cm, previously measuring 11.9 cm.
[2025-04-26 12:10] LABS: Hematocrit 37.0 % (36.0-46.0); Hemoglobin 12.6 g/dL (12.2-16.2); Mean Corpuscular Hemoglobin 27.2 pg (28.0-32.0); Mean Corpuscular Volume 79.7 fL (80.0-100.0); Nucleated Red Blood Cells % 0.0 %
[2025-04-26 12:11] LABS: Urine Protein, UAD 1+ (Negative)
[2025-04-26 12:19] LABS: Alanine Aminotransferase 17 U/L (7-40); Albumin 3.9 g/dL (3.2-4.8); Anion Gap 11 (5-15); Bilirubin, Total 0.4 mg/dL (0.2-1.0); Calcium 8.8 mg/dL (8.7-10.4); Carbon Dioxide 21 mmol/L (20-31); Glucose 80 mg/dL (74-106); Potassium 4.3 mmol/L (3.5-5.1); Sodium 139 mmol/L (136-145); Total Protein 7.2 g/dL (5.7-8.2)
[2025-04-26 12:23] LABS: Chloride 107 mmol/L (98-107)
[2025-04-26 12:24] LABS: Alkaline Phosphatase 215 U/L (46-116); BUN/Creatinine Ratio 9.8 (10.0-20.0); Blood Urea Nitrogen < 5 mg/dL (9-23)
[2025-04-26 12:31] LABS: Uric Acid 4.1 mg/dL (3.1-7.8)
[2025-04-26 12:33] LABS: INR 0.96 (0.9-1.15); Partial Thromboplastin Time 29.6 SEC (24.5-34.5); Prothrombin Time 10.2 sec (9.3-11.8)
[2025-04-26 12:35] LABS: Protein, Urine 96.7 mg/dL (1-14)
[2025-04-26 14:08] LABS: Protein, Urine 16.4 mg/dL (1-14)
[2025-04-26 14:52] LABS: 24 Hr. Total Protein, Urine 311.6 mg/24 Hr (<149.1); Urine Total Volume, 24 Hours 1900.0 mL
--- NOTE | 2025-04-28 12:53 | DVHDS2 ---
Physician Discharge Progress N Final Diagnosis: pih 38wks Operations or Procedures: Operations or Procedures nst reactive reviwed,sono Condition on Discharge: Good Disposition: Home Discharge Instructions: Diet: Regular, Consistent carbohydrate Activity: No Restrictions, As Tolerated Medications: na Follow Up Care: Specialist: 1d Discharge Statement: "Patient was advised to return to the ER or call 911 if any headaches, dizziness, shortness of breath, chest pain, abdominal pain, bleeding, fevers, or worsening of medical condition. Patient was counseled about treatment plan, medications, possible side effects, patientverbalized understanding. All questions were answered to the best of my ability. This discharge took greater then 30 minutes in planning, reviewing documentation, counseling the patient, and discussing with other team members." Visit Coding OBGYN Date of Service: Apr 26, 2025 Billing Provider: YINA MOSELEY DO FINANCIAL SERVICES INTERN Common Visit Codes: 68545-[id number] OBS CARE (HIGH) FINANCIAL SERVICES INTERN Procedure Codes: 42390-76- NON-STRESS TEST YINA MOSELEY DO Apr 28, 2025 12:53
== END 2025-04-26 14:16 | disposition home or self-care (01) ==
LOC: LDRP 10:33 → UNDOADMOB 10:33 → LDRP 10:42
PROVIDERS: ADMIT Obstetrics & Gynecology; ATTEND Obstetrics & Gynecology
DX: O60.03 Preterm labor without delivery, third trimester (principal); R79.1 Abnormal coagulation profile; Z3A.38 38 weeks gestation of pregnancy; Z79.899 Other long term (current) drug therapy; Z98.890 Other specified postprocedural states
CPT/HCPCS: 36415; 59025; 76819; 80053; 81001; 81002; 82570; 84156; 84550; 85025; 85610; 85730; 94760; G0378

== ENCOUNTER 2025-04-27 19:37 | Observation (INO) | payer MEDICAID ==
[~2025-04-27] VITALS: Ht 167.6 cm; Wt 130.2 kg
--- NOTE | 2025-04-27 20:58 | DVH ---
BIOPHYSICAL PROFILE HISTORY: PIH and Fall TECHNIQUE: Multiple transabdominal real-time grayscale sonographic images through the gravid uterus of the fetus with duplex Doppler color flow and M-mode spectral analysis FINDINGS: BIOPHYSICAL PROFILE: breathing score: 2 movement score: 2 tone score: 2 Quantitative KAR score: 2 (KAR: 11.0 Cm, MVP: 7.4 cm .) Total score: 8/8 The cervix obscured by head Single live fetus in cephalic presentation. heart rate 167 beats per minute. Fundal Grade 2 placenta without previa or abruption Single live fetus at 38 weeks 2 days Biophysical profile score 8/8 corresponding to an YEVGENIY of 05/09/2025 IMPRESSION: 1. Biophysical profile score: 8/8
[2025-04-28] MEDS ORDERED: IBUP-1456 PO (08:41)
[2025-04-28] MEDS ORDERED: DOCU-94 PO (08:41)
[2025-04-28] MEDS ORDERED: HYDR-4072 PO (08:41)
--- NOTE | 2025-04-28 11:27 | DVHDS2 ---
Physician Discharge Progress N Final Diagnosis: IUP at 38w5d testing for PIH Fall. No abruption Operations or Procedures: Operations or Procedures SUBJECTIVE Joanne Barnhart is a 29 yo with IUP at 38w5d presenting for scheduled NST/BPP for PIH and pre-op appointment for c/s scheduled tomorrow 04/28. Patient fell in the parking lot on her way here Patient states that she was ascending the stairs in the parking lot and she missed a step. Her left knee hit the ground and she caught herself with her R elbow. Denies any contact on the ground with her abdomen. Denies feeling UCs, denies leaking fluid, denies vaginal bleeding, and states positive movement. Denies headache, blurry vision, or epigastric pain PNC: good. with Dr Solis. EDC: 05/06/2025 Review of Systems: Neuro: No complaints Heart: No complaints Lungs: No complaints GI: No complaints : No complaints Skin: No complaints Extremities: Pain in L knee and R elbow. Patient is wearing leggings and states her knee looked normal, without scrapes or bruising, when she went to the bathr oom OBJECTIVE VSS FHR: Baseline: 135 Variability: Moderate Accelerations: Present Decelerations: Absent Category: 1 UCs: occasional Neuro: A&O x4. No apparent distress. Affect appropriate Heart: Regular rate and rhythm Lungs: Clear bilaterally GI: Gravid. No tenderness. Large umbilical hernia noted on the RLQ Skin: Dry and intact. No rashes. Mild erythema on R elbow Extremities: Cap refill WNL. Mild edema bilat ankles. BPP: 8/8. No evidence of abruption. KAR: 11.0cm PIH labs: pc ratio: 0.24 ASSESSMENT 29 yo with IUP at 38w5d Category 1 Tracing PIH, testing No placental abruption PLAN -Co-managed with Dr Solis. Consulted via telephone. MD SULLIVAN for patient to be discharged home -Discussed term labor precautions and kick counts. Answered all patient questions and concerns. Patient verbalizes understanding. -Patient scheduled for c/s 04/28. To be at the hospital at 0500 Other Interventions Other Interventions BIOPHYSICAL PROFILE HISTORY: PIH and Fall TECHNIQUE: Multiple transabdominal real-time grayscale sonographic images through the gravid uterus of the fetus with duplex Doppler color flow and M-mode spectral analysis FINDINGS: BIOPHYSICAL PROFILE: breathing score: 2 movement score: 2 tone score: 2 Quantitative KAR score: 2 (KAR: 11.0 Cm, MVP: 7.4 cm .) Total score: 8/8 The cervix obscured by head Single live fetus in cephalic presentation. heart rate 167 beats per minute. Fundal Grade 2 placenta without previa or abruption Single live fetus at 38 weeks 2 days Biophysical profile score 8/8 corresponding to an YEVGENIY of 05/09/2025 IMPRESSION: 1. Biophysical profile score: 8/8 Condition on Discharge: Good Disposition: Home Discharge Instructions: Diet: Regular Diet comment: NPO after midnight Activity: No Restrictions, As Tolerated Medications: No change. See med list Follow Up Care: Specialist: c/s, BTL, and hernia repair scheduled for 04/28 Discharge Statement: "Patient was advised to return to the ER or call 911 if any headaches, dizziness, shortness of breath, chest pain, abdominal pain, bleeding, fevers, or worsening of medical condition. Patient was counseled about treatment plan, medications, possible side effects, patientverbalized understanding. All questions were answered to the best of my ability. This discharge took greater then 30 minutes in planning, reviewing documentation, counseling the patient, and discussing with other team members." Visit Coding OBGYN Date of Service: Apr 27, 2025 Billing Provider: GOLDEN MCNAMARA CNM SLOT TAG INSERTER Common Visit Codes: 32810-CZZFWQL INP/OBS CARE (HIGH) SLOT TAG INSERTER Procedure Codes: 57715-76- NON-STRESS TEST GOLDEN MCNAMARA CNM Apr 27, 2025 22:16
[2025-04-28] MEDS ORDERED: CEPH500T PO (12:39)
== END 2025-04-27 22:40 | disposition home or self-care (01) ==
LOC: LDRP 19:37
PROVIDERS: ADMIT Obstetrics & Gynecology; ATTEND Obstetrics & Gynecology
DX: O13.3 Gestational [pregnancy-induced] hypertension without significant proteinuria, third trimester (principal); O99.613 Diseases of the digestive system complicating pregnancy, third trimester; K42.9 Umbilical hernia without obstruction or gangrene; Z3A.38 38 weeks gestation of pregnancy; Z79.899 Other long term (current) drug therapy; Z98.890 Other specified postprocedural states
CPT/HCPCS: 59025; 76819; 81002; 94762; A4315; G0378

== ENCOUNTER 2025-04-28 05:09 | Inpatient (IN) | payer MEDICAID ==
[2025-04-27 21:18] LABS: Hematocrit 37.3 % (36.0-46.0); Hemoglobin 12.8 g/dL (12.2-16.2); Mean Corpuscular Hemoglobin 27.0 pg (28.0-32.0); Mean Corpuscular Volume 78.9 fL (80.0-100.0); Nucleated Red Blood Cells % 0.2 %
[2025-04-27 21:35] LABS: Alanine Aminotransferase 16 U/L (7-40); Albumin 4.1 g/dL (3.2-4.8); Anion Gap 11 (5-15); BUN/Creatinine Ratio 13.8 (10.0-20.0); Bilirubin, Total 0.6 mg/dL (0.2-1.0); Calcium 9.4 mg/dL (8.7-10.4); Carbon Dioxide 22 mmol/L (20-31); Chloride 105 mmol/L (98-107); Glucose 81 mg/dL (74-106); INR 0.97 (0.9-1.15); Partial Thromboplastin Time 28.7 SEC (24.5-34.5); Potassium 3.9 mmol/L (3.5-5.1); Prothrombin Time 10.3 sec (9.3-11.8); Sodium 138 mmol/L (136-145); Total Protein 7.4 g/dL (5.7-8.2); Uric Acid 4.4 mg/dL (3.1-7.8)
[2025-04-27 21:39] LABS: Alkaline Phosphatase 218 U/L (46-116); Blood Urea Nitrogen 8 mg/dL (9-23)
[2025-04-27 22:04] LABS: Urine Protein, UAD TRACE (Negative)
[2025-04-27 22:08] LABS: Protein, Urine 33.3 mg/dL (1-14)
[2025-04-27 22:15] LABS: Amphetamine Screen, Urine Neg (NEGATIVE); Barbiturate Scree,Urine Neg (NEGATIVE); Benzodiazephine Screen, Urine Neg (NEGATIVE); Cannabinoid Screen, Urine Neg (NEGATIVE); Cocaine Screen, Urine Neg (NEGATIVE); Opiate Scree,Urine Neg (NEGATIVE); Phencyclidine Screen, Urine Neg (NEGATIVE)
[2025-04-28] VITALS (17 sets, daily range): BP systolic 117–148; BP diastolic 61–85; PULSE 75–110; RESP 16–20; TEMP 98.3–98.8; O2SAT 94–99
[~2025-04-28] VITALS: Ht 167.6 cm; Wt 128.4 kg
--- NOTE | 2025-04-28 04:46 | DVHHP ---
ADMIT DATE: 04/28/2025 CHIEF COMPLAINT: Desires repeat section with bilateral tubal ligation, worsening preeclampsia. HISTORY OF PRESENT ILLNESS: The patient is a 29-year-old 4, para 2 with an EDC of 05/06, estimated gestational age of 38+ weeks, admitted for repeat section and bilateral tubal ligation. The patient has preeclampsia, which appears to be worsening. Blood pressures are somewhat labile. Subsequently, the patient is admitted for that for repeat section. The patient also has an umbilical hernia that Dr. Liang will repair. Risks, complications, indications, and alternatives to the procedure were discussed with the patient. The patient fully understands and wishes to proceed with the planned procedure. PAST MEDICAL HISTORY: None. PAST SURGICAL HISTORY: . SOCIAL HISTORY: None. FAMILY HISTORY: None. OBSTETRIC/GYNECOLOGIC HISTORY: One section. REVIEW OF SYSTEMS: Consistent with HPI. PHYSICAL EXAMINATION: VITAL SIGNS: Stable, afebrile. HEENT: Within normal limits. CARDIOVASCULAR: Regular rate and rhythm. LUNGS: Clear to auscultation. BREASTS: Symmetrical, no masses. ABDOMEN: Gravid. Positive heart. Large umbilical hernia noted. PELVIC: Deferred. EXTREMITIES: No clubbing or cyanosis. +2 edema bilaterally. IMPRESSION: * Intrauterine at 38+ weeks, with worsening preeclampsia. * Previous section x 1. Desires repeat section. * Desires bilateral tubal ligation. * Umbilical hernia. * Morbid obesity. PLAN: Repeat section with bilateral tubal ligation via Filshie clips. Informed consent obtained. Risks and complications of surgery including infection, bleeding, hematoma formation, injury to bowel or bladder, surrounding organ, possibility of DVT, pulmonary embolism, and risks of anesthesia were discussed with the patient. Options were reviewed. All questions were answered. The patient fully understands. Failure rate with tubal sterilization was discussed with the patient. The patient wishes to proceed with the planned procedure. Repair of hernia will be done by Dr. Liang. Ami Solis DO MZ/LOLA TID: [id number] RECEIPT: [id number]
[2025-04-28] MEDS: METOCLOPRAMIDE HCL 5MG/ml INJ 2ml VIAL IV ONE (05:30)
[2025-04-28] MEDS ORDERED: SODIUM CITR/CITRIC ACID ORAL SOLN 30 ML PO ONE (05:30)
[2025-04-28] MEDS: LACTATED RINGER'S 1,000 ML IV ONE (05:53)
[2025-04-28] MEDS: DIPHENOXYLATE W/ATROPINE 2.5 MG TAB PO ONE (08:00)
[2025-04-28] MEDS ORDERED: DIPHENOXYLATE W/ATROPINE 2.5 MG TAB PO PRN (08:00)
[2025-04-28] MEDS ORDERED: MORPHINE SULF PF 5 MG/10 ML VIAL ONE (08:33)
[2025-04-28] MEDS ORDERED: BUPIVACAINE/DEXTROSE MPF 0.75% 2 ML AMP IT ONE (08:34)
[2025-04-28] MEDS ORDERED: SUCCINYLCHOLINE CHLORIDE 20 MG/ML 10ML VIAL IV ONE (08:36)
[2025-04-28] MEDS ORDERED: TETRACAINE 1% INJ 2 ML VIAL IJ ONE (08:40)
[2025-04-28] MEDS ORDERED: IBUP-1456 PO (08:41)
[2025-04-28] MEDS ORDERED: DOCU-94 PO (08:41)
[2025-04-28] MEDS ORDERED: HYDR-4072 PO (08:41)
[2025-04-28] MEDS: ceFAZolin 2 GM/D5W50ml 50 ML IV ONE (08:41)
[2025-04-28] MEDS: LACT. RINGERS/OXYTOCIN 20UNITS 1,000 ML IV ONE (08:45)
[2025-04-28] MEDS: GUM (CHEWING) 1 GUM CHEW CHEW ONE (08:45)
[2025-04-28] MEDS ORDERED: ONDANSETRON HCL 4 MG/2 ML VIAL ONE (09:21)
[2025-04-28] MEDS: CARBOPROST TROMETHAMINE 250 MCG/1ML VIAL IM ONE (09:25)
[2025-04-28] MEDS: TRANEXAMIC ACID 10 ML ONE (09:37)
[2025-04-28] MEDS ORDERED: MIDAZOLAM HCL 2MG/2ML 2ml VIAL (1mg/ml) ONE (09:41)
[2025-04-28] MEDS: CARBOPROST TROMETHAMINE 250 MCG/1ML VIAL IM PRN (10:07)
--- NOTE | 2025-04-28 10:25 | DVHOP ---
DATE OF SURGERY: 04/28/2025 PREOPERATIVE DIAGNOSIS: Umbilical hernia. POSTOPERATIVE DIAGNOSIS: Umbilical hernia. SURGEON: Rainer Liang MD COMPUTER NETWORK SUPPORT SPECIALIST: Anshu Mckeon NP ANESTHESIA: Spinal. ANESTHESIOLOGIST: Dr. Tolbert. DESCRIPTION OF PROCEDURE: The patient was a term patient who delivered via . Following the completion of the and closure of the wound, I was asked to present to the operating room and repair her large umbilical hernia. A separate incision was made in the infraumbilical skin horizontally. The skin was incised and the incision deepened with electrocautery on to the adipose tissue and rectus muscle. The defect in the muscle measured approximately 5 cm in diameter. The peritoneal sac was excised in its entirety and submitted. Edges of the defect were grasped with Debby clamps. Closure of the defect consisting of #1 double-stranded Prolene suture in a horizontal mattress fashion and then reinforced with 0 Tevdek sutures. The wound was irrigated and approximated using Monocryl sutures, Dermabond glue and Steri-Strips. The patient remained stable throughout the procedure and left the operating room following an accurate needle and sponge count. Rainer Liang MD PF/EDMUND TID: [id number] RECEIPT: [id number]
[2025-04-28] MEDS: ONDANSETRON HCL 4 MG/2 ML VIAL IV PRN (11:11)
[2025-04-28] MEDS ORDERED: KETOROLAC TROMETH 30 MG/ML 1ML VIAL IV PRN (11:15)
[2025-04-28] MEDS ORDERED: diphenhydrAMINE HCL 50 MG/1 ML VL IV PRN (11:15)
[2025-04-28] MEDS ORDERED: METOCLOPRAMIDE HCL 5MG/ml INJ 2ml VIAL IV PRN (11:15)
[2025-04-28] MEDS ORDERED: HYDROmorphone HCL 2 MG/ML VL/or syr IV PRN ×2 (11:15)
[2025-04-28] MEDS ORDERED: NALOXONE HCL 0.4 MG/ML VIAL IV PRN (11:15)
[2025-04-28] MEDS ORDERED: ONDANSETRON HCL 4 MG/2 ML VIAL IV PRN ×2 (11:15)
[2025-04-28] MEDS ORDERED: ACETAMINOPHEN IV 1000 MG/100ML (10MG/ML) IV PRN (11:15)
[2025-04-28] MEDS: NALBUPHINE HCL 10 MG/1ml INJECTION SUBCUT ONE (11:15)
[2025-04-28] MEDS ORDERED: MEPERIDINE HCL (25 MG/ML) 1ML VIAL IV PRN (11:15)
--- NOTE | 2025-04-28 12:25 | DVHOP2 ---
Operative Report DATE OF OPERATION: 04/28/25 PREOPERATIVE DIAGNOSES: 1. Term , desires repeat section. 2. Desires bilateral salpingectomy 3.morbid obesity,bicornuate uterus,pih 4.desires umbilical hernia repair POSTOPERATIVE DIAGNOSES: same,nuchal cord PROCEDURES: Repeat section with bilateral salpingectomy,hernia repair by dr ty SURGEON: Ami Moseley D.O./erika/dr ty ANESTHESIOLOGIST: Dr. mtz TYPE OF ANESTHESIA : spinal ESTIMATED BLOOD LOSS: 800 mL CONSENT: The patient was informed of the risks and benefits of the procedure. These include but are not limited to , complications of anesthesia, postoperative infection, incomplete relief of symptoms, recurrence of symptoms, damage to blood vessels, nerves and tendons, deep venous thrombosis, pulmonary embolism and possible need for repeat surgery in the future. Surgery was opted.pt expressed desire for bilateral salpingectomy rather than filschie clips FINDINGS: Baby [f] with apgars [8] and [9]. Grossly normal appearing tubes and ovaries.bicornuate uterus TISSUE TO PATHOLOGY: Placenta and bilateral tubes PROCEDURE IN DETAIL: The patient was taken to the operating room where she was placed under spinal anesthesia. She was then prepped and draped in the usual sterile manner in supine position with a leftward tilt. A Pfannenstiel skin incision was then made 2 cm above the symphysis pubis. This incision was dana d to the underlying layer of fascia. The fascia was nicked in the midline and the incision was extended laterally. The superior aspect of the fascial incision was grasped and elevated. Underlying rectus muscle was dissected off bluntly. The same procedure was done to the inferior aspect of the fascial incision. The rectus muscles were then in the midline. Peritoneum was identified and entered. Peritoneal incision was extended superiorly and inferiorly with good visualization of the bladder. Bladder blade was inserted. Vesicouterine peritoneum was identified and entered. Lower uterine segment was incised in a transverse fashion. The infant was delivered from vertex presentation. The was baby [f] with Apgars of [8] and 9. Placenta was then removed manually. Uterus was exteriorized and cleared off all clots and debris. Uterine incision was repaired using 0 Vicryl in a double-layered fashion. No bleeding was noted. Bilateral salpingectomy was done due to pts request intraoperatively.pt expressed desire for more of a permananet sterilization by having both tubes removed since she was undergoing umbilical he rnia repair and since she has a bicornuate uterus she didnt want any risk of ectoic or any further recurrence of hernia due to an other surgery caused by failure of tubal ligation.in addition filschie clips were applied to small remainder of isthmic portion of both sides... No bleeding was noted. Peritoneum was closed using 0 Vicryl, fascia was closed using 0 Maxon, and skin was closed using tanika. Estimated blood loss was noted to be 800 mL. The patient tolerated the procedure well.dr ty then took over to perform his repair of hernia. Visit Coding OBGYN Date of Service: Apr 28, 2025 Billing Provider: AMI MOSELEY DO [employer] SPANISH TEACHER Common Visit Codes: 68372-BRBTXYS OBS CARE (HIGH) [employer] SPANISH TEACHER Procedure Codes: 32612-DHKNV @ TIME OF , 12902-FAS.SURG:W/REM ADNEXAL STRUCT, 90491-00- NON-STRESS TEST, 64100-S-QTMKPKA DELIVERY ONLY AMI MOSELEY DO Apr 28, 2025 12:25
[2025-04-28] MEDS ORDERED: LACTATED RINGER'S 1,000 ML IV SCH (12:30)
--- NOTE | 2025-04-28 12:37 | POSTOP ---
Post-Operative Note Post-Operative Note Preop Diagnosis iup at 38wks with pih ,previous csx1 desires rcs with bilateral salpingectomy morbid obesity,bicornuate uterus Postop Diagnosis: same,nuchal cord,umbilical hernia Operation performed rca with bilat salpingectomy,repair of umbilical hernia by dr ty Specimen baby girl,cornuate uterus,nuchal cord Anesthesia: Regional Anesthesiologist: nugyjoseph Blood Loss(fluid mgmt) 800ml Surgeon Ami Solis Weight Shifter erika and dr ty Implant clips and tonny Complications & Mgmt none Date 04/28/25 Time 12:25 Visit Coding OBGYN Date of Service: Apr 28, 2025 Billing Provider: AMI SOLIS DO CERTIFIED MEDICINE AIDE Common Visit Codes: 81010-CLSCSMN OBS CARE (HIGH) CERTIFIED MEDICINE AIDE Procedure Codes: 90350-SZOCL @ TIME OF , 05078-DAN.SURG:W/REM ADNEXAL STRUCT, 08224-N-BIUZGHP DELIVERY ONLY AMI SOLIS DO Apr 28, 2025 12:37
[2025-04-28] MEDS ORDERED: CEPH500T PO (12:39)
[2025-04-28] MEDS ORDERED: ceFAZolin 1GM/50ML 50 ML IV SCH (13:30)
[2025-04-28] MEDS: ACETAMINOPHEN IV 1000 MG/100ML (10MG/ML) IV PRN (16:42)
[2025-04-28] MEDS: ceFAZolin 1GM/50ML 50 ML IV SCH (17:14)
[2025-04-28] MEDS: LACTATED RINGER'S 1,000 ML IV SCH (22:07)
[2025-04-28] MEDS: HYDROmorphone HCL 2 MG/ML VL/or syr IV PRN (22:08)
[2025-04-28 22:12] LABS: Hemoglobin 11.4 g/dL (12.2-16.2); Nucleated Red Blood Cells % 0.0 %
[2025-04-28 22:14] LABS: Hematocrit 33.9 % (36.0-46.0); Mean Corpuscular Hemoglobin 26.9 pg (28.0-32.0); Mean Corpuscular Volume 79.7 fL (80.0-100.0)
[2025-04-29] VITALS (14 sets, daily range): BP systolic 135–148; BP diastolic 68–88; PULSE 75–107; RESP 16–20; TEMP 97.9–98.8; O2SAT 96–100
[2025-04-29] MEDS: ceFAZolin 1GM/50ML 50 ML IV SCH (01:47)
[2025-04-29] MEDS ORDERED: ceFAZolin 1GM/50ML 50 ML IV SCH (02:00)
--- NOTE | 2025-04-29 03:09 | DVHPN2 ---
Progress Note Date Seen: Apr 29, 2025 Subjective Joanne was resting semi fowlers in bed with partner sitting on couch upon entry to room S: -Lochia minimal, passed [id number] membranous clot with tissue fragments. -Clear diet well tolerated -Patient reports feeling lightheadedness when trying to stand and sit up. -Pain relieved with IV medication PRN -Has not passed gas yet. - w/o problem vital signs Vital Sign Date Time Temp Pulse Resp B/P (MAP) Pulse Ox O2 Delivery O2 Flow Rate FiO2 04/29/25 02:49 95 18 99 04/28/25 23:00 98.4 128/85 (99) 98.4 04/28/25 19:00 Room Air 04/28/25 10:53 0 96 Total Intake and Output 04/28/25 04/28/25 04/29/25 15:00 23:00 07:00 Output Total 150 ml 400 ml 1000 ml Balance -150 ml -400 ml -1000 ml medications Current Medications Medications Dose Ordered Sig/Christina Route Start Time Stop Time Status Last Admin Dose Admin Lactated Ringer's 1,000 ml @ 125 mls/hr Q8H IV 04/28/25 05:30 04/28/25 22:07 125 MLS/HR Misoprostol 200 mcg ONCE PRN SL 04/28/25 08:00 Cancel Misoprostol 600 mcg ONCE PRN MI 04/28/25 08:00 Cancel Diphenoxylate HCl/ Atropine 2.5 mg PRN PRN PO 04/28/25 08:00 Ondansetron HCl 4 mg Q4HP PRN IV 04/28/25 08:45 04/28/25 11:11 4 MG Diphenhydramine HCl 25 mg Q4HP PRN IV 04/28/25 11:15 Ondansetron HCl 4 mg Q4HP PRN IV 04/28/25 11:15 Ketorolac Tromethamine 30 mg Q6HP PRN IV 04/28/25 11:15 05/03/25 11:14 Lactated Ringer's 1,000 ml @ 125 mls/hr Q8H IV 04/28/25 12:30 Acetaminophen 1,000 mg Q8HR PRN IV 04/28/25 12:30 04/29/25 06:01 04/29/25 02:36 1,000 MG Hydromorphone HCl 0.5 mg Q2HPRN PRN IV 04/28/25 20:00 04/28/25 22:08 0.5 MG Cefazolin Sodium 50 ml @ 100 mls/hr Q8HR IV 04/29/25 01:30 04/29/25 01:47 100 MLS/HR laboratory and microbiology Laboratory Tests 04/28/25 21:54 04/27/25 21:02 Test 04/27/25 21:02 Range/Units Serum Glucose 81 74-106 mg/dL Objective O: -A&O x4. No apparent distress. Affect appropriate -Afebrile, VSS -Chest: heart and lung sounds normal. -Breasts: Nipples intact w/o cracks or soreness -Abdomen: normal BS, soft, non-tender, no rebound or guarding, fundus firm @ U- 1, -Lower abdominal incision site and umbilical incision site with dressing dry and intact. No edema, erythema or induration -Extremities: no edema or tenderness Problems(with codes): (1) S/P section Assessment/Plan A/P: 29 yo now Post operative & ppd # 1 s/p Repeat Section with umbilical hernia repair and BTL, doing well. Blood Type: O+ Breast feeding Rubella Immune -Continue pain management with IV medications as previously ordered, will transition to PO at 24 hours -Encouraged regular diet to promote recovery and bowel regulation. Increase fluid intake and fiber in diet to promote regular bowel movements, Laxative PRN -Educated patient on self-care -Continue routine care Plan discussed with: Patient and spouse Plan discussed with: Patient, Spouse Visit Coding OBGYN Date of Service: Apr 29, 2025 Billing Provider: GOLDEN MCNAMARA CNM STUDENT COUNSELOR Common Visit Codes: [id number] INP/OBS CARE(HIGH) GOLDEN MCNAMARA CNM Apr 29, 2025 03:09
[2025-04-29] MEDS: IBUPROFEN 800 MG TAB PO PRN (07:53)
[2025-04-29] MEDS: SIMETHICONE 80 MG CHEWABLE TABLET PO SCH (07:53)
[2025-04-29 09:40] LABS: Hematocrit 31.6 % (36.0-46.0); Hemoglobin 10.5 g/dL (12.2-16.2); Mean Corpuscular Hemoglobin 26.7 pg (28.0-32.0); Mean Corpuscular Volume 80.3 fL (80.0-100.0); Nucleated Red Blood Cells % 0.0 %
[2025-04-29] MEDS: HYDROcodone-ACET 5/325MG TAB PO PRN (10:48)
[2025-04-30] MEDS: HYDROcodone-ACET 5/325MG TAB PO PRN (01:27)
[2025-04-30 03:00] VITALS: BP 130/80; PULSE 100; RESP 17; TEMP 98.6; O2SAT 97
[2025-04-30 07:00] VITALS: BP 144/93; PULSE 108; RESP 17; RESP 18; TEMP 98.9; O2SAT 97
--- NOTE | 2025-04-30 07:42 | DVHDS2 ---
Physician Discharge Progress N Final Diagnosis: Previous c/section s/p repeat C/S and BTL Umbilical hernia s/p repair Operations or Procedures: Operations or Procedures Repeat low transv c/section and BTL Hernia repair, umbilical Commentary: Commentary Normal post op course Condition on Discharge: Stable Disposition: Home Discharge Instructions: Diet: Regular Activity: Light activity Follow Up/Referral: [address] Mclain Medications: See eRx list Follow Up Care: Discharge Statement: "Patient was advised to return to the ER or call 911 if any headaches, dizziness, shortness of breath, chest pain, abdominal pain, bleeding, fevers, or worsening of medical condition. Patient was counseled about treatment plan, medications, possible side effects, patientverbalized understanding. All questions were answered to the best of my ability. This discharge took greater then 30 minutes in planning, reviewing documentation, counseling the patient, and discussing with other team members." Visit Coding OBGYN Date of Service: Apr 30, 2025 Billing Provider: SUKHJINDER PAPPAS DO [employer] [employer] REGISTRAR Common Visit Codes: 15542-MMZ/OBS DISCH DAY >30MIN SUKHJINDER PAPPAS DO Apr 30, 2025 07:42
[2025-04-30 11:00] VITALS: BP 138/75; PULSE 101; RESP 18; TEMP 98.4; O2SAT 97
[2025-04-30 15:00] VITALS: BP 136/67; PULSE 92; RESP 18; TEMP 98.8; O2SAT 97
[2025-04-30 19:30] VITALS: BP 149/86; PULSE 110; RESP 17; TEMP 99; O2SAT 99
[2025-04-30 22:55] VITALS: BP 131/79; PULSE 99; RESP 17; TEMP 98.7; O2SAT 99
--- NOTE | 2025-05-01 02:14 | DVHDS2 ---
Discharge Summary Date of Admission Apr 28, 2025 at 05:09 Date of Discharge: Apr 30, 2025 Admitting Diagnosis Term preg previous c/section. Large umbilical hernia Labs/Diagnostic Data: Laboratory Results Test 04/29/25 08:42 04/27/25 21:02 04/27/25 20:45 White Blood Count 11.3 10^3/uL (4.4-10.8) Red Blood Count 3.93 10^6/uL (4.0-5.20) Hemoglobin 10.5 g/dL (12.2-16.2) Hematocrit 31.6 % (36.0-46.0) Mean Corpuscular Volume 80.3 fL (80.0-100.0) Mean Corpuscular Hemoglobin 26.7 pg (28.0-32.0) Mean Corpuscular Hemoglobin Concent 33.3 g/dL (32.0-36.0) Red Cell Distribution Width 14.3 % (11.8-14.3) Platelet Count 180 10^3/uL (140-450) Mean Platelet Volume 10.3 fL (6.9-10.8) Neutrophils (%) (Auto) 78.0 % (37.0-80.0) Lymphocytes (%) (Auto) 15.0 % (10.0-50.0) Monocytes (%) (Auto) 6.5 % (0.0-12.0) Eosinophils (%) (Auto) 0.4 % (0.0-7.0) Basophils (%) (Auto) 0.1 % (0.0-2.0) Neutrophils # (Auto) 8.8 10 ^3/uL (1.6-8.6) Lymphocytes # (Auto) 1.7 10 ^3/uL (0.4-5.4) Monocytes # (Auto) 0.7 10 ^3/uL (0-1.3) Eosinophils # (Auto) 0 10 ^3/uL (0-0.8) Basophils # (Auto) 0 10 ^3/uL (0-0.2) Nucleated Red Blood Cells 0.0 % Prothrombin Time 10.3 sec (9.3-11.8) Prothrombin Time INR 0.97 (0.9-1.15) Activated Partial Thromboplast Time 28.7 SEC (24.5-34.5) Sodium Level 138 mmol/L (136-145) Potassium Level 3.9 mmol/L (3.5-5.1) Chloride Level 105 mmol/L (98-107) Carbon Dioxide Level 22 mmol/L (20-31) Anion Gap 11 (5-15) Blood Urea Nitrogen 8 mg/dL (9-23) Creatinine 0.58 mg/dL (0.550-1.02) Glomerular Filtration Rate Calc 125 mL/min (>90) BUN/Creatinine Ratio 13.8 (10.0-20.0) Serum Glucose 81 mg/dL (74-106) Uric Acid 4.4 mg/dL (3.1-7.8) Calcium Level 9.4 mg/dL (8.7-10.4) Total Bilirubin 0.6 mg/dL (0.2-1.0) Aspartate Amino Transferase (AST) 15 U/L (13-40) Alanine Aminotransferase (ALT) 16 U/L (7-40) Alkaline Phosphatase 218 U/L (46-116) Total Protein 7.4 g/dL (5.7-8.2) Albumin 4.1 g/dL (3.2-4.8) Treponema pallidum Antibody Non-reactive (Negative) Hepatitis C Antibody Negative (Negative) Urine Color Yellow (Yellow) Urine Clarity Clear (Clear) Urine pH 5.5 (5.0-9.0) Urine Specific [place] 1.022 (1.001-1.035) Urine Protein Trace (Negative) Urine Ketones Trace (Negative) Urine Blood Negative /uL (Negative) Urine Nitrite Negative (Negative) Urine Bilirubin Negative (Negative) Urine Urobilinogen 3 mg/dL (Negative) Urine Leukocyte Esterase 3+ /uL (Negative) Urine RBC 5 /hpf (0 - 4) Urine Microscopic WBC 16 /HPF (0-5) Urine Squamous Epithelial Cells Few /hpf (<5) Urine Bacteria Few /hpf (None Seen) Urine Mucus Few (None Seen) Urine Creatinine 138.92 mg/dL (30.0-125.0) Urine Protein/Creatinine Ratio 0.24 Urine Glucose Normal mg/dL (Normal) Urine Total Protein 33.3 mg/dL (1-14) Urine Opiates Screen Neg (NEGATIVE) Urine Fentanyl Screen Neg (NEGATIVE) Urine Barbiturates Screen Neg (NEGATIVE) Urine Phencyclidine Screen Neg (NEGATIVE) Urine Amphetamines Screen Neg (NEGATIVE) Urine Benzodiazepines Screen Neg (NEGATIVE) Urine Cocaine Screen Neg (NEGATIVE) Urine Cannabinoids Screen Neg (NEGATIVE) Other Laboratory Tests 04/29/25 08:42 04/27/25 21:02 Brief Hx & Hospital Course: Admitted for scheduled repeat C/S and BTL General surgeon also performed repair of umbilical hernia Operations or Procedures Repeat low transv c/section and BTL Hernia repair, umbilical Condition at Discharge: Stable Final Diagnosis/Problems List Previous c/section s/p repeat C/S and BTL Umbilical hernia s/p repair Secondary Diagnosis: Precipitous drop in hemoglobin/hct. Discharge Disposition: Home Discharge Instruct/Medications Diet: Regular Activity: Light activity Follow Up/Referral: [address] Solis and Garth Medications: See eRx list Scheduled Cephalexin Monohydrate (Cephalexin), 1 TAB PO QID Docusate Sodium (Colace), 1 CAP PO BID Labetalol Hcl (Labetalol Hcl), 1 TAB PO BID W/O Vit A W/ Fe Carbo (Pnv Ob+Dha), 1 TAB OR DAILY, (Reported) Scheduled PRN Docusate Sodium (Docusate Sodium), 100 MG PO Q12HR PRN Hydrocodone-Acetaminophen (Hydrocodone Bitartrate/AC 5-325 mg), 1 TAB PO Q4HPRN PRN Hydrocodone-Acetaminophen (Hydrocodone/Acetaminophen 10-325 mg), 1 TAB PO Q6HPRN PRN Ibuprofen (Ibuprofen), 800 MG PO TID PRN Ibuprofen Micronized (Ibuprofen), 800 MG PO Q8HP PRN Discharge Statement: "Patient was advised to return to the ER or call 911 if any headaches, dizziness, shortness of breath, chest pain, abdominal pain, bleeding, fevers, or worsening of medical condition. Patient was counseled about treatment plan, medications, possible side effects, patientverbalized understanding. All questions were answered to the best of my ability. This discharge took greater then 30 minutes in planning, reviewing documentation, counseling the patient, and discussing with other team members." ASSESSMENT ASSESSMENT Assessment Previous c/section s/p repeat C/S and BTL Umbilical hernia s/p repair Visit Coding OBGYN Date of Service: May 01, 2025 Billing Provider: SUKHJINDER PAPPAS DO GRADE AND CENTER MARKER Common Visit Codes: 40010-EHA/OBS DISCH DAY <30MIN SUKHJINDER PAPPAS DO May 01, 2025 02:14
[2025-05-01 03:30] VITALS: BP 120/66; PULSE 89; RESP 18; TEMP 98.3; O2SAT 99
[2025-05-01 07:00] VITALS: BP_SYST 117; BP_SYST 134; BP_DIAS 72; BP_DIAS 79; PULSE 76; PULSE 90; RESP 18; TEMP 97.2; TEMP 98.6; O2SAT 96; O2SAT 97
[2025-05-01 10:00] VITALS: TEMP 37
== END 2025-05-01 12:28 | disposition home or self-care (01) | DRG 539 ==
LOC: LDRP 05:09
PROVIDERS: ADMIT Obstetrics & Gynecology; ATTEND Obstetrics & Gynecology
PROC: 0WQF0ZZ Repair Abdominal Wall, Open Approach (ICD-10-PCS; 2025-04-28)
PROC: 0UL70CZ Occlusion of Bilateral Fallopian Tubes with Extraluminal Device, Open Approach (ICD-10-PCS; principal; 2025-04-28 08:50)
PROC: 10D00Z1 Extraction of Products of Conception, Low, Open Approach (ICD-10-PCS; 2025-04-28 08:50)
DX: O34.211 Maternal care for low transverse scar from previous cesarean delivery (principal); O11.4 Pre-existing hypertension with pre-eclampsia, complicating childbirth; R71.0 Precipitous drop in hematocrit; O34.03 Maternal care for unspecified congenital malformation of uterus, third trimester; O69.81X0 Labor and delivery complicated by cord around neck, without compression, not applicable or unspecified; K42.9 Umbilical hernia without obstruction or gangrene; E66.01 Morbid (severe) obesity due to excess calories; O99.214 Obesity complicating childbirth; O99.62 Diseases of the digestive system complicating childbirth; Q51.3 Bicornate uterus; Z30.2 Encounter for sterilization; Z37.0 Single live birth; Z3A.38 38 weeks gestation of pregnancy
CPT/HCPCS: 36415; 59025; 80053; 80307; 81001; 82570; 84156; 84550; 85025; 85610; 85730; 86780; 86803; 86850; 86900; 86901; 94760; 94762; 96360; 96361; 96374; G0378; J0131; J0330; J2250; J2405; J2590